=== PATIENT | male | born 2000 | race Caucasian/White ===

== ENCOUNTER 2024-08-14 05:10 | Emergency (ER) | payer OTHER ==
[~2024-08-14] VITALS: Ht 182.9 cm; Wt 99.8 kg
[2024-08-14 05:20] VITALS: BP 87/64; PULSE 116; RESP 20; TEMP 98.4; O2SAT 97
[2024-08-14 06:19] LABS: BASOPHILS % (AUTO) 0.1 % (0.0-2.0); EOSINOPHILS % (AUTO) 0.3 % (0.0-4.0); HEMATOCRIT 49.5 % (36-52); LYMPHOCYTES # (AUTO) 1.8 K/uL (2.0-11.5); LYMPHOCYTES % (AUTO) 12.5 % (20.5-51.1); MEAN CORPUSCULAR HEMOGLOBIN 30 pg (27-31); MEAN CORPUSCULAR HGB CONC 34 g/dL (33-37); MEAN CORPUSCULAR VOLUME 85.9 fL (80-94); MONOCYTES # (AUTO) 0.4 K/uL (0.8-1.0); MONOCYTES % (AUTO) 2.5 % (1.7-9.3); NEUTROPHILS # (AUTO) 12.1 K/uL (1.8-7.7); NEUTROPHILS % (AUTO) 84.6 % (42.2-75.2); PLATELET COUNT (AUTO) 245 K/uL (140-450); RED BLOOD CELL COUNT(AUTO) 5.76 MIL/uL (4.20-6.10); WHITE BLOOD COUNT (AUTO) 14.3 K/uL (4.8-10.8)
[2024-08-14 06:40] LABS: ANION GAP 12.2 (8-16); CARBON DIOXIDE 27.9 mmol/L (21-32); CREATININE 1.2 mg/dL (0.6-1.3); POTASSIUM 4.1 mmol/L (3.5-5.1); TOTAL BILIRUBIN 0.4 mg/dL (0.0-1.0); TOTAL PROTEIN, SERUM 7.2 g/dL (6.4-8.2)
[2024-08-14] MEDS: METOCLOPRAMIDE 10 MG/2 ML INJ VIAL IVP ONE (06:52)
[2024-08-14] MEDS: ACETAMINOPHEN EXTRA STRENGTH 500 MG TAB PO ONE (06:53)
[2024-08-14] MEDS: KETOROLAC 30 MG/ML VIAL IVP ONE (06:53)
[2024-08-14] MEDS: NACL 0.9% 2,000 ML IV ONE (08:15)
[2024-08-14] MEDS ORDERED: ONDA-188 PO (08:15)
[2024-08-14] MEDS ORDERED: IBUP-1842 PO (08:17)
[2024-08-14] MEDS ORDERED: ACET500T99 PO (08:17)
[2024-08-14 08:32] VITALS: BP 120/71; PULSE 84; RESP 20; TEMP 98.4; O2SAT 97
[2024-08-14 08:45] LABS: FLU A ANTIGEN negative (NEGATIVE); FLU B ANTIGEN NEGATIVE (NEGATIVE)
== END 2024-08-14 08:32 | disposition home or self-care (01) ==
LOC: MED 05:10
DX: R51.9 Headache, unspecified (principal); R11.2 Nausea with vomiting, unspecified; E86.1 Hypovolemia; Z20.822 Contact with and (suspected) exposure to COVID-19; Z79.899 Other long term (current) drug therapy
CPT/HCPCS: 36415; 80053; 83690; 85025; 87426; 87804; 96374; 96375; 99284; J1885; J2765